=== PATIENT | male | born 1990 | race Hispanic/Latino ===

== ENCOUNTER 2021-01-05 15:46 | Emergency (ER) | payer SELFPAY ==
[~2021-01-05] VITALS: Ht 170.2 cm; Wt 70.0 kg
[2021-01-05 16:50] VITALS: BP 144/78
== END 2021-01-05 16:50 | disposition home or self-care (01) | DRG 552 ==
LOC: ED 15:46
DX: M54.41 Lumbago with sciatica, right side (principal); M54.16 Radiculopathy, lumbar region